=== PATIENT | male | born 2000 | race Caucasian/White ===

== ENCOUNTER 2024-11-28 20:00 | Emergency (ER) | payer BC, SELFPAY ==
--- OUTSIDE RECORDS SUMMARY | 2024-08-27 05:30 | XMS_ITS ---
Author Organization [facility] in [place] Address [address] [place] [address] Care Team Providers Care [employer] Teacher Name Role Phone Keith Louis Primary Care Provider Allergies Allergen (clinical drug ingredient) Drug/Non Drug Allergy documented on EMR Reaction Allergy Type Onset Date Status sulfamethoxazole / trimethoprim Bactrim childhood Drug Allergy Active REASON FOR VISIT f/u lymph node swelling on the left side- said he can feel one on the right- does feel better today, Eczema- currently uses eczema lotion OTC Medications Medication SIG (Take, Route, Frequency, Duration) Notes Start Date End Date Status Triamcinolone Acetonide 0.1 % 1 application Externally bid 08/27/2024 Active Social History Tobacco Use: Social History Observation Description Date Details (start date - stop date) Current Smoker NA - NA Tobacco Use/Smoking Question Answer Notes Patient is a current smoker How often do you smoke cigarettes? every day Problems Problem Type SNOMED Code ICD Code Onset Dates Problem Status W/U Status Risk Notes Problem Lymphadenopathy (16528111) Lymphadenopathy (R59.1) Active confirmed Vital Signs Blood pressure systolic 128 mm Hg 08/28/19 25 Blood pressure diastolic 74 mm Hg 025 Height 70 in 08/27/2024 Weight 215.2 lbs 08/27/2024 BMI 30.87 kg/m2 08/27/2024 Encounters Encounter Location Date Provider Diagnosis [facility] [address] [place] [address] 08/27/2024 Keith Louis Eczema L30.9 and Lymphadenopathy R59.1 Assessments Encounter Date Diagnosis (ICD Code) Assessment Notes Treatment Notes Treatment Clinical Notes Section Notes 08/27/2024 Eczema (ICD-10 - L30.9) 08/27/2024 Lymphadenopathy (ICD-10 - R59.1) Plan Of Treatment Medication Medication Name Sig Start Date Stop Date Notes Triamcinolone Acetonide 0.1 % 1 application Externally bid 08/27/2024 Progress Notes * Zachery VALVERDEDOB:2000 (23 yo M)Acc No.[id number]:08/27/2024 Progress Note Patient: Zachery WERNER Provider: Lauri Louis ([facility])MD :2000 A ge:23 Y S ex:Male Date:08/27/2024 Address:[address] [place], [place] [id number] Check In:09:18 AM ESTCheck O ut:09:49 AM EST Subjective: * Chief Complaints: * F /u lymph node swelling on the left side- said he can feel one on the right- does feel better todayEczema- currently uses eczema lotion OTC * HPI: G eneral: gettnto hand for the ecxema - steroid ceream helped ih the past. * ROS: E ENT: hearing changes d enies. v isual changes d enies.?non-healing mouth sores d enies. s wollen glands or neck lumps d enies. h oarseness d enies. s ore throat d enies. d ifficulty swallowing d enies. n ose bleeds d enies. n richard congestion d enies. e ar ache d enies. e ar discharge?denies. r inging in ears d enies. l ight sensitivity d enies. e ye pain d enies. b lurring d enies. e ye irritation d enies. d ouble vision d enies.?vision loss d enies. G eneral/Constitutional: Sweats: D enies. F atigue d enies. S leep problems d enies. A norexia d enies. M alaise d enies. W eight loss d enies.?Fatigue or Weakness d enies. F ever or Chills d enies. C ardiovascular: Shortness of Breath w/lying flat d enies. L ightheadedness/dizziness d enies. C hest tightness/ heavy pressure d enies. S welling of legs, ankles, or feet d enies. W aking up with shortness of breath d enies. C hest pain denies. P alpitations d enies. W eight gain d enies. R espiratory: Chronic or frequent cough d enies. C oughing up blood?denies. D ifficulty breathing d enies. P roductive cough d enies. S noring?denies. S hortness of breath that awakens from sleep (PND) d enies. C hest pain d enies. S putum production d enies. W heezing d enies. M usculoskeletal: Joint pain d enies. J oint Fluid d enies. B ack pain d enies. K nee pain d enies. N marcia pain d enies. J oint Stiffness d enies. M uscle cramps d enies. W eakness of muscles d enies. A rthritis d enies. M uscle aches d enies. P ain in shoulder(s) d enies. S wollen joints d enies. * Active Problem List G43.909 Migraine headache Modified On:02/23/2023U Status:confirmed F41.9 Anxiety Modified On:02/26/2023U Status:confirmed G47.00 Insomnia Modified On:02/23/2023U Status:confirmed L30.9 Eczema Modified On:02/19/2023U Status:confirmed J30.2 Seasonal allergic rh initis Modified On:02/19/2023U Status:confirmed R41.840 Poor concentration Modified On:02/19/2023U Status:confirmed N48.89 Penile mass Modified On:08/23/2023U Status:confirmed M79.606 Leg pain Modified On:11/22/2023U Status:confirmed K13.79 Mouth sore Modified On:09/04/2024W/U Status:confirmed K12.1 Oral ulcer Modified On:01/07/2024/U Status:confirmed B00.1 Cold sore Modified On:08/06/2024/U Status:confirmed L01.00 Impetigo Modified On:08/06/2024/U Status:confirmed K52.9 Gastroenteritis Modified On:08/06/2024/U Status:confirmed R59.1 Lymphadenopathy Modified On:08/27/2024/U Status:confirmed * Medical History: * Surgical History: D enies Past Surgical History * Hospitalization/Major Diagno stic Procedure: D enies Past Hospitalization * Family History: F ather: , esophageal cancer, Bone cancer, diagnosed with Other malignant neoplasm of unspecified site. M other: alive. B rother(s): alive. 1 sister(s) - healthy. . * Social History: T obacco Use: T obacco Use/Smoking P atient is a c urrent smoker H ow often do you smoke cigarettes? e very day * Medications: D iscontinuedDoxycycline Monohydrate 100 MG Capsule 1 capsule Orally bid Hyoscyamine Sulfate 0.125 MG Tablet Sublingual 1-2 tabs SL SL every 4 hrs PRN abd pain Mupirocin 2 % Ointment 1 application Externally Twice a day valACYclovir HCl 500 MG Tablet 1 tablet Orally tid Medication List reviewed and reconciled with the patientDiscontinued Doxycycline Monohydrate 100 MG Capsule 1 capsule Orally bid Discontinued Hyoscyamine Sulfate 0.125 MG Tablet Sublingual 1-2 tabs SL SL every 4 hrs PRN abd pain Discontinued Mupirocin 2 % Ointment 1 application Externally Twice a day Discontinued valACYclovir HCl 500 MG Tablet 1 tablet Orally tid Medication List reviewed and reconciled with the patient * Allergies: B actrim: childhood - Allergyno[Allergies Verified] Objective: * Vitals: W t:215.2lbs, Ht: 70 in, BP:128/74mm Hg, BMI:30.87Index, Ht-cm: 177.8 cm, Wt-k.61 kg. * Examination: P hysical Exam: GENERAL: w ell developed, well nourished, in no acute distress. HEAD: n ormocephalic/atraumatic. EYES: p upils equal, round and reactive to light, conjunctivae and sclerae normal. EARS: n o deformity or lesion of external ear, canals and TM appear normal bilaterally, TM's intact, not inflamed with normal light reflex, hearing grossly normal to conversational speech. NOSE: n o deformity, discharge, inflammation, or lesions.? MOUTH: m ucous membranes moist, normal oropharynx and posterior pharynx without lesions or exudates, tongue normal, dentition normal. NECK: n marcia supple, no masses or palpable cervical nodes, trachea midline, thyroid without nodules, masses, tenderness, or enlargement. CHEST: n o chest wall deformity, no chest wall tenderness.? LUNGS: n ormal respiratory effort and clear to auscultation, no wheezes, rales, or rhonchi, good air exchange. CARDIO: r egular rate and rhythm, normal S1 and S2, nor murmur, rub, or gallop. PULSES: n ormal capillary refill. ABDOMEN: s oft, non-distended, non-tender, no masses. MUSCULOSKELETAL: h ands iwth ecxema rsh. EXTREMITY: n o clubbing, cyanosis, edema, or deformity with normal ROM in both upper and lower bilateral extremities. NEUROLOGIC: g rossly normal. SKIN: n o rashes, ulcerations, or suspicious lesions. LYMPH NODES: B ilateral solitay lymph nodes - soft - not stuck -. MENTAL STATUS: a lert and oriented x3, normal mood and affect. Assessment: * Assessment: 1. E czema - L30.9 (Primary) 2 . L ymphadenopathy - R59.1 Plan: * Treatment: * Procedure Codes: * Preventive Medicine: Screenings/Counseling: B IN ACTION PLAN Above Normal BMI Follow-up D ietary management education, guidance, and counseling * * Sign off status: Completed Visit Status: C HK (Check Out) true * Provider: Lauri Louis ([facility])MD Date: 0 08/27/2024 Generated for Paulinei kendra/Selvin/eTransmitting on: 0 11/28/2024 08:18 PM EDT History and Physical Notes * HPI (History of Present Illness) Category Sub-Category Detail Notes Category Not es General gettnto hand fo r the ecxema - steroid ceream helped ih the past Examination Category Sub-Category Detail Notes Category Not es Physical Exam GENERAL: well developed, well nourished, in no acute distress HEAD: normocephalic/atraum atic EYES: pupils equal, round and reactive to light, conjunctivae and sclerae normal EARS: no deformity or lesi on of external ear, canals and TM appear normal bilaterally, TM's intact, not inflamed with normal light reflex, hearing grossly normal to conversational speech NOSE: no deformity, discha rge, inflammation, or lesions MOUTH: mucous membranes sukh st, normal oropharynx and posterior pharynx without lesions or exudates, tongue normal, dentition normal NECK: neck supple, no mass es or palpable cervical nodes, trachea midline, thyroid without nodules, masses, tenderness, or enlargement CHEST: no chest wall deform ity, no chest wall tenderness LUNGS: normal respiratory e ffort and clear to auscultation, no wheezes, rales, or rhonchi, good air exchange CARDIO: regular rate and rhy thm, normal S1 and S2, nor murmur, rub, or gallop PULSES: normal capillary ref ill ABDOMEN: soft, non-distended, non-tender, no masses RECTAL: MUSCULOSKELETAL: hands iwth ecxema rs h EXTREMITY: no clubbing, cyanosi s, edema, or deformity with normal ROM in both upper and lower bilateral extremities NEUROLOGIC: grossly normal SKIN: no rashes, ulceratio ns, or suspicious lesions LYMPH NODES: Bilateral solitay ly mph nodes - soft - not stuck - MENTAL STATUS: alert and oriented x 3, normal mood and affect
--- OUTSIDE RECORDS SUMMARY | 2024-09-04 05:00 | XMS_ITS ---
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 Name Role Phone Keith Louis Primary Care Provider Allergies Allergen (clinical drug ingredient) Drug/Non Drug Allergy documented on EMR Reaction Allergy Type Onset Date Status sulfamethoxazole / trimethoprim Bactrim childhood Drug Allergy Active REASON FOR VISIT lymph nodes f/u-right side Medications Medication SIG (Take, Route, Frequency, Duration) Notes Start Date End Date Status Triamcinolone Acetonide 0.1 % 1 application Externally bid 08/27/2024 Active Social History Tobacco Use: Social History Observation Description Date Details (start date - stop date) Current Smoker NA - NA Tobacco Use/Smoking Question Answer Notes Patient is a current smoker How often do you smoke cigarettes? every day Vital Signs Blood pressure systolic 130 mm Hg 09/05/19 25 Blood pressure diastolic 78 mm Hg 025 Height 70 in 09/04/2024 Weight 213.2 lbs 09/04/2024 BMI 30.59 kg/m2 09/04/2024 Encounters Encounter Location Date Provider Diagnosis [facility] [address] [place] [address] 09/04/2024 Keith Louis Lymphadenopathy R59. 1 Assessments Encounter Date Diagnosis (ICD Code) Assessment Notes Treatment Notes Treatment Clinical Notes Section Notes 09/04/2024 Lymphadenopathy (ICD-10 - R59.1) all clear - - and pt agrees no swelling found Plan Of Treatment Treatment Notes Assessment Notes Lymphadenopathy all clear - - and pt agrees no swelling found Progress Notes * Janeen VALVERDE:2000 (23 yo M)Acc No.[id number]:09/04/2024 Progress Note Patient: Zachery WERNER Provider: Lauri Louis ([facility])MD :2000 A ge:23 Y S ex:Male Date:09/04/2024 Address:[address] [place], [place] [id number] Check In:08:50 AM ESTCheck O ut:09:21 AM EST Subjective: * Chief Complaints: * L ymph nodes f/u-right side * HPI: G eneral: intermittant lymph node swelling - all gone today. * Active Problem List G43.909 Migraine headache Modified On:02/23/2023 Status:confirmed F41.9 Anxiety Modified On:02/26/2023 Status:confirmed G47.00 Insomnia Modified On:02/23/2023 Status:confirmed L30.9 Eczema Modified On:02/19/2023 Status:confirmed J30.2 Seasonal allergic rh initis Modified On:02/19/2023 Status:confirmed R41.840 Poor concentration Modified On:02/19/2023 Status:confirmed N48.89 Penile mass Modified On:08/23/2023 Status:confirmed M79.606 Leg pain Modified On:11/22/2023 Status:confirmed K13.79 Mouth sore Modified On:01/02/2024 Status:confirmed K12.1 Oral ulcer Modified On:01/07/2024 Status:confirmed B00.1 Cold sore Modified On:08/06/2024 Status:confirmed L01.00 Impetigo Modified On:08/06/2024 Status:confirmed K52.9 Gastroenteritis Modified On:08/06/2024 Status:confirmed R59.1 Lymphadenopathy Modified On:08/27/2024 Status:confirmed * Medical History: * Surgical History: N o Surgical History documented. * Hospitalization/Major Diagno stic Procedure: N o Hospitalization History. * Family History: F ather: , esophageal cancer, Bone cancer, diagnosed with Other malignant neoplasm of unspecified site. M other: alive. B rother(s): alive. 1 sister(s) - healthy. . * Social History: T obacco Use: T obacco Use/Smoking P atient is a c urrent smoker H ow often do you smoke cigarettes? e very day * Medications: T akingTriamcinolone Acetonide 0.1 % Cream 1 application Externally bid Medication List reviewed and reconciled with the patientTaking Triamcinolone Acetonide 0.1 % Cream 1 application Externally bid Medication List reviewed and reconciled with the patient * Allergies: B actrim: childhood - Allergyno[Allergies Verified] Objective: * Vitals: W t:213.2lbs, Ht: 70 in, BP:130/78mm Hg, BMI:30.59Index, Ht-cm: 177.8 cm, Wt-k.71 kg. * Examination: A bdomen Exam:: B ilatel neck exam - all clear - pt agrees nothign there today. Assessment: * Assessment: 1. L ymphadenopathy - R59.1 (Primary) Plan: * Treatment: * Procedure Codes: * * Sign off status: Completed Visit Status: C HK (Check Out) true * Provider: Lauri Louis ([facility])MD Date: 0 09/04/2024 Generated for Printi ng/Faromerog/eTransmitting on: 0 11/28/2024 08:18 PM EDT History and Physical Notes * HPI (History of Present Illness) Category Sub-Category Detail Notes Category Not es General intermittant ly mph node swelling - all gone today Examination Category Sub-Category Detail Notes Category Not es Abdomen Exam: Bilatel neck e xam - all clear - pt agrees nothign there today
[2024-11-28 20:06] VITALS: BP 163/88; PULSE 110; TEMP 36.7; O2SAT 99; BMI 31.6
--- NOTE | 2024-11-28 20:14 | PC.NURSE ---
right knee swelling, pt able to bend at knee slightly and reports able to put some weight on this but this increases pain. no bruising and skin intact.
--- OUTSIDE RECORDS SUMMARY | 2024-11-28 20:18 | XMS_ITS | Clinical Summary ---
Author Organization [facility] Address [address] [place] [address] Care Team Providers Care Pr Specialist Name Role Phone Yohannes Louis MD Primary Care Provider [phone] Allergies Active Allergy Reactions Criticality Noted Date Comments Sulfa Antibiotics 01/08/2024 Medications tiZANidine (Zanaflex) 4 MG capsule Take 4 mg by mouth as needed at bedtime for muscle spasms Active triamcinolone (Kenalog) 0.1 % oral paste Use in the mouth or throat 2 (two) times a day Active Active Problems Problem Noted Date Diagnosed Date Poor concentration 01/08/2024 Anxiety 01/08/2024 Insomnia 01/08/2024 Eczema 01/08/2024 Ganglion cyst 01/08/2024 Resolved Problems Problem Noted Date Diagnosed Date Resolved Date Acute eczematoid otitis externa 01/08/2024 01/08/2024 Family History Medical History Relation Name Comments Cancer Father esophageal, bon e No Known Problems Mother Relation Name Status Comments Father Mother Social History Tobacco Use Types Packs/Day Years Used Date Smoking Tobacco: Every Day Cigarettes Smokeless Tobacco: Never Tobacco Cessation:Ready to Q uit: Not Asked; Counseling Given: Not Answered Sex and Gender Information Value Date Recorded Sex Assigned at Not on file Legal Sex Male 9:15 AM EDT Gender Identity Not on file Sexual Orientation Not on file Plan of Treatment Not on file Insurance BS Care Teams Pr Specialist Relationship Specialty Start Date End Date Yohannes Louis MD PCP - General Family Medicine 01/08/24
--- OUTSIDE RECORDS SUMMARY | 2024-11-28 20:18 | XMS_ITS | Patient Health Record ---
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 Role Phone Heriberto Keith Primary Care Provider Allergies Allergen (clinical drug ingredient) Drug/Non Drug Allergy documented on EMR Reaction Allergy Type Onset Date Status sulfamethoxazole / trimethoprim Bactrim childhood Drug Allergy Active Reason For Referral Diagnosis 1 Oral ulcer (K12.1) Referral Organization [facility] Referring Provider First Name Keith Referring Provider Last Name Heriberto Referring Provider Speciality Family Med icine Referred Provider Ramila Flanagan Referred Provider Specialty Otolaryngolo gy Referral Priority Routine Medications Medication SIG (Take, Route, Frequency, Duration) [...] Problem Status W/U Status Risk Notes Problem Migraine variant with headache (disorder) (664479317) Migraine headache (G43.909) Active confirmed Problem Anxiety (89305561) Anxiety (F41.9) Active confi rmed Problem Insomnia (125683317) Insomnia (G47.00) Active confirmed Problem Eczema (86105172) Eczema (L30.9) Active confirm ed Problem Cold sore (5452513) Cold sore (B00.1) Active confirmed Problem Leg pain (87146347) Leg pain (M79.606) Active confirmed Problem Lymphadenopathy (84279575) Lymphadenopathy (R59.1) Active confirmed Problem Seasonal allergic rhinitis (737397778) Seasonal allergic rhinitis (J30.2) Active confirmed Problem Impetigo (62055640) Impetigo (L01.00) Active confirmed Problem Ulcer of mouth (disorder) (09550090) Mouth sore (K13.79) Active confirmed Problem Gastroenteritis (69825786) Gastroenteritis (K52.9) Active confirmed Problem Oral ulcer (21851539) Oral ulcer (K12.1) Active confirmed Problem Poor concentration (04393697) Poor concentration (R41.840) Active confirmed Problem Disorder of penis (51703905) Penile mass (N48.89) Active confirmed Vital Signs Temperature 98.1 degrees Fahrenheit 08/06/2024 Blood pressure diastolic 78 mm Hg 09/04/2024 Height 70 in 09/04/2024 Blood pressure systolic 130 mm Hg 09/04/2024 Weight 213.2 lbs 09/04/2024 BMI 30.59 kg/m2 09/04/2024 Encounters Encounter Location Date Provider Diagnosis [address] [address] 01/02/2024 Keith Hoy Mouth sore K13.[address] [address] 01/07/2024 Keith Hoy Oral ulcer K12.[address] [address] 08/06/2024 Keith Hoy Cold sore B00.1 ; Im petigo L01.00 and Gastroenteritis K52.[address] [address] 08/27/2024 Keith Hoy Eczema L30.9 and Lymphadenopathy R59.[address] [address] 09/04/2024 Keith Hoy Lymphadenopathy R59. 1 Assessments Encounter Date Diagnosis (ICD Code) Assessment Notes Treatment Notes Treatment Clinical Notes Section Notes 01/02/2024 Mouth sore (ICD-10 - K13.79) 01/07/2024 Oral ulcer (ICD-10 - K12.1) 08/06/2024 Cold sore (ICD-10 - B00.1) 08/06/2024 Impetigo (ICD-10 - L01.00) 08/27/2024 Eczema (ICD-10 - L30.9) 08/27/2024 Lymphadenopathy (ICD-10 - R59.1) 09/04/2024 Lymphadenopathy (ICD-10 - R59.1) all clear - - and pt agrees no swelling found 08/06/2024 Gastroenteritis (ICD-10 - K52.9) Plan Of Treatment No Information Insurance Providers Payer Name Payer Address Payer Phone Subscriber Number Group Number Insured Name Patient Relationship to Insured Coverage Start Date Coverage End Date [employer] PPO PLUS LOCAL PLAN [address] [place] [phone] [id number] Zachery Adams Self - patient is the insured Medical (General) History Medical History History ICD Code Poor concentration R41.840 Ganglion cyst M67.40 Anxiety F41.9 Insomnia G47.00 Seasonal allergic rhinitis J30.2 Eczema L30.9 Migraine headache G43.909
--- OUTSIDE RECORDS SUMMARY | 2024-11-28 20:18 | XMS_ITS | Encounter Summary ---
Author Organization [facility] Address [address] [place] [address] Care Team Providers Care Block Sorter Name Role Phone Yohannes Louis MD Primary Care Provider [phone] Encounter Details Date Type Department Care Team (Late st Contact Info) Description 01/08/2024 Abstract [facility] [address] [place] [id number] Mai Salguero, ROXY [address] [place] [address] Social History Tobacco Use Types Packs/Day Years Used Date Smoking Tobacco: Every Day Cigarettes Smokeless Tobacco: Never Tobacco Cessation:Ready to Q uit: Not Asked; Counseling Given: Not Answered Sex and Gender Information Value Date Recorded Sex Assigned at Not on file Legal Sex Male 9:15 AM EDT Gender Identity Not on file Sexual Orientation Not on file documented as of this encounter Plan of Treatment Not on file documented as of this encounter Visit Diagnoses Not on filedocumented in this encounter Care Teams Block Sorter Relationship Specialty Start Date End Date Yohannes Louis MD PCP - General Family Medicine 01/08/24 documented as of this encounter
--- NOTE | 2024-11-28 20:19 | XR_ITS ---
[address] [address] Patient Name: MIKE VALVEDRE MRN: [id number] date: 2000 Sex: M Assigned Patient Location: ED.MAIN Current Patient Location: ED.MAIN Accession/Order Number: [id number] Exam Date: 11/28/2024 20:54 Report Date: 11/28/2024 20:56 At the request of: DIMPLE ESCALONA Procedure: XR knee RT 3V RIGHT KNEE - 3 views CLINICAL HISTORY: medial knee injury COMPARISON: None FINDINGS: No fractures or dislocation. Joint spaces preserved.. XR/XR knee RT 3V IMPRESSION: Negative acute osseous finding Impression dictated by: Sean Albright M.D. 11/28/2024 8:56 PM Dictation Location: [place] [address] Electronically authenticated by: [id number] Y Date: 11/28/2024 20:56
--- NOTE | 2024-11-28 20:20 | ED_ITS ---
HPI HPI - General Adult General Chief complaint: Extremity Injury, Lower Stated complaint: HURT RIGHT KNEE Time Seen by Provider: 11/28/24 20:19 Source: patient Mode of arrival: Wheelchair History of Present Illness HPI narrative: Presents to the emergency department with pain to the medial aspect of the right knee. Patient states that he believes he had a hyperextension/flexion injury while wrestling with a friend. Injury occurred yesterday. Patient states he has been able to bear weight on it but it is painful to do so. Patient is been taking ibuprofen without improvement. Patient denies any pain, numbness or tingling below the knee and denies any pain above the knee. Denies any joint laxity with range of motion Onset (ago): day(s) (1) Location: Reports right Severity: moderate Related Data Previous Rx's ?Medication ?Instructions ?Recorded etodolac 400 mg tablet (Lodine) 400 mg PO Q12H PRN anand n #14 tabs 11/28/24 Allergies Allergy/AdvReac Type Severity Reaction Status Date / Time sulfamethoxazole (From Allergy Severe Unknown Verified 11/28/24 20:11 Bactrim) trimethoprim (From Bactrim) Allergy Severe Unknown Verified 11/28/24 20:11 Review of Systems ROS Status of ROS 10 or more systems reviewed and unremark able except as noted in history and below PFSH PFSH Social History Little interest or pleasure in doing things: not at all Feeling down, depressed, or hopeless: not at all Exam Constitutional Vital Signs, click to edit/add: Last Vital Signs Temp 98.0 F 11/28/24 20:06 Pulse 96 H 11/28/24 20:58 Resp 16 11/28/24 20:58 BP 156/95 H 11/28/24 20:58 Pulse Ox 98 11/28/24 20:58 Documenting provider has reviewed patient's vital signs: yes Common normals: no apparent distress, average body habitus, oriented x3 and no limitations Neck & C-Spine Common normals: full ROM Chest Common normals: inspection of chest normal Extremity Right lower extremity: knee joint Right knee: palpation (tenderness to MCL region), ROM (intact with pain) and neurovascular exam (normal) Course Vital Signs Vital signs: Vital Signs Temperature 98.0 F 11/28/24 20:06 Pulse Rate 110 H 11/28/24 20:06 Respiratory Rate 18 11/28/24 20:06 Blood Pressure 163/88 H 11/28/24 20:06 Pulse Oximetry 99 11/28/24 20:06 Temperature 98.0 F 11/28/24 20:06 Pulse Rate 96 H 11/28/24 20:58 Respiratory Rate 16 11/28/24 20:58 Blood Pressure 156/95 H 11/28/24 20:58 Pulse Oximetry 98 11/28/24 20:58 Medical Decision Making MDM Narrative Medical decision making narrative: Presented the emergency department with right knee pain following an injury sustained yesterday. Patient had no obvious joint laxity but did have pain and swelling to the MCL and patellar tendon region of the knee. X-ray showed no obvious fractures or dislocations. Patient placed in a knee immobilizer and crutches and referred to orthopedic for outpatient follow-up Imaging Data Abdominal x-ray: Attestation: I personally reviewed and interpreted this imaging study as follows: My impression: No obvious fractures Radiologist's impression: ITS Impressions Knee X-Ray 11/28/24 20:19 IMPRESSION: Negative acute osseous finding Impression dictated by: Sean Albright M.D. 11/28/2024 8:56 PM Dictation Location: [place] [id number] Electronically authenticated by: [id number] Y Date: 11/28/2024 20:56 Discharge Plan Discharge Stand Alone Forms: Work/School Release Chief Complaint: Extremity Injury, Lower Clinical Impression: MCL sprain of right knee Patient Disposition: Home, Self-Care Time of Disposition Decision: 21:03 Condition: Good Mode of Transportation: Private Vehicle Prescriptions / Home Meds: New etodolac [Lodine] 400 mg tablet 400 mg PO Q12H PRN (Reason: pain) Qty: 14 0RF Print Language: Arabic Instructions: Knee Sprain (DC) Referrals: Yohannes Louis MD [Primary Care Provider, Family Practice] - 1 week Getachew Dodson DO [Physician, Orthopedics] - 1 week
[2024-11-28 20:58] VITALS: BP 156/95; PULSE 96; O2SAT 98
[2024-11-28] MEDS: NAPROXEN 250 MG TABLET 500 MG PO (21:12)
== END 2024-11-28 21:38 | disposition home or self-care (01) ==
PROVIDERS: Emergency Provider Emergency Medicine; PCP Family Medicine
DX: S83.411A Sprain of medial collateral ligament of right knee, initial encounter (principal); X50.9XXA Other and unspecified overexertion or strenuous movements or postures, initial encounter
CPT/HCPCS: 73562; 99284